=== PATIENT | female | born 1940 | race Caucasian/White ===

== ENCOUNTER 2019-05-05 01:03 | Inpatient (IN) | payer MEDICARE ==
[2019-05-05 03:43] VITALS: BMI 22.1
[2019-05-05] MEDS ORDERED: PANTOPRAZOLE 40 MG/10 ML VIAL IVP SCH (09:45)
[2019-05-05] MEDS: SODIUM CHLORIDE 0.9% 1,000 ML IV SCH (10:38)
[2019-05-05] MEDS ORDERED: ACETAMINOPHEN TAB 325 MG TAB PO PRN (11:10)
[2019-05-05] MEDS ORDERED: DOCUSATE 100 MG CAP PO PRN (11:10)
--- NOTE | 2019-05-05 11:14 | P.HPIM ---
History of Present Illness This is a pleasant 78 years old female with past medical history of hiatus hernia, possible GERD, she had EGD more than 5 years ago, mitral valve prolapse, peripheral vascular disease status post bilateral stent placement. She was transferred from [facility]. Presents with worsening upper abdominal pain of 1 month duration, the pain is in mainly in the epigastrium radiating to the sides, felt like burning about 10/10 in severity as per patient although she is does not look in distress. Associated with some nausea but no vomiting. Bowel movements looks constipated. It looks like over the last 4 weeks patient was placed on Carafate and omeprazole without much help of her abdominal pain. Over the last 2 days patient also was complaining of from odynophagia, with pain with swallowing. she denies chest pain or dyspnea. As per daughter at bedside started about one month ago with common called at that time she got Augmentin and developed abdominal pain with nausea vomiting and she at [facility] she had CAT scan of the abdomen without contrast was showing gastritis with less prominent rugal folds from prior examination. Chest x-ray showing no acute process per assistant to the director's report. EKG show normal sinus rhythm with no significant ST-T changing, rate is 88 with QTC 423. Labs showing negative troponin. Sodium 143, potassium 2.9, creatinine 0.9, liver enzymes elevated, bilirubin 0.8 amylase 67. Urine analysis is still suspicious of infection. W WBC 7.0K, hemoglobin 12.0, platelets 267. patient denies history of smoking, alcohol or illicit drug abuse Review of Systems CONSTITUTIONAL: No fever, no malaise, no fatigue. HEENT: No recent visual problems or hearing problems. Denied any sore throat. CARDIOVASCULAR: No orthopnea, PND, no palpitations, no syncope. PULMONARY: No shortness of breath, no cough, no hemoptysis. GASTROINTESTINAL: No diarrhea, Normoactive bowel sounds. NEUROLOGICAL: No headaches, no weakness, no numbness. HEMATOLOGICAL: Denies any bleeding or petechiae. GENITOURINARY: Denies any burning micturition, frequency, or urgency. MUSCULOSKELETAL/RHEUMATOLOGICAL: Denies any joint pain, swelling, or any muscle pain. ENDOCRINE: Denies any polyuria or polydipsia. 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, hiatal Hernia, cirrohosis History of Any Multi-Drug Resistant Organisms: None Reported Past Surgical History: Appendectomy, Cholecystectomy, Hysterectomy Additional Past Surgical History / Comment(s): 2 scar tissues removals, stent in B/L legs Past Anesthesia/Blood Transfusion Reactions: No Reported Reaction Smoking Status: Former smoker - Past Family History Father Family Medical History: GERD/Reflux Additional Family Medical History / Comment(s): Ulcers, gangrene of the toe Mother Family Medical History: Diabetes Mellitus, Hypertension Medications and Allergies Home Medications Medication Instructions Recorded Confirmed Type Acetaminophen [Tylenol Arthritis] 650 mg PO HS PRN 05/05/19 05/05/19 History Aspirin EC [Ecotrin Low Dose] 81 mg PO DAILY 05/05/19 05/05/19 History Cetirizine HCl [Zyrtec] 10 mg PO DAILY PRN 05/05/19 05/05/19 History Docusate [Colace] 100 mg PO DAILY PRN 05/05/19 05/05/19 History Gabapentin [Neurontin] 300 mg PO TID 05/05/19 05/05/19 History Omeprazole 20 mg PO BID 05/05/19 05/05/19 History Rosuvastatin [Crestor] 10 mg PO HS 05/05/19 05/05/19 History Sucralfate [Carafate] 1 gm PO ACHS 05/05/19 05/05/19 History Allergies Allergy/AdvReac Type Severity Reaction Status Date / Time amoxicillin [From Augmentin] Allergy Nausea & Verified 05/05/19 07:39 Vomiting clavulanic acid Allergy Nausea & Verified 05/05/19 07:39 [From Augmentin] Vomiting duloxetine Allergy Unknown Verified 05/05/19 07:39 metronidazole Allergy Unknown Verified 05/05/19 07:39 pregabalin [From Lyrica] Allergy Unknown Verified 05/05/19 07:39 Sulfa (Sulfonamide Allergy Unknown Verified 05/05/19 07:39 Antibiotics) trimethoprim Allergy Unknown Verified 05/05/19 07:39 codeine AdvReac Nausea & Verified 05/05/19 07:39 Vomiting hydromorphone [From Dilaudid] AdvReac Nausea & Verified 05/05/19 07:39 Vomiting morphine AdvReac Nausea & Verified 05/05/19 07:39 Vomiting Physical Exam Vitals: Vital Signs Temp Pulse Resp BP Pulse Ox 05/05/19 07:30 98.3 F 72 18 103/61 95 05/05/19 04:00 98.0 F 67 16 148/76 97 Intake and Output 05/04/19 05/05/19 05/05/19 22:59 06:59 14:59 Other: # Voids 1 Weight 58.6 kg GENERAL: The patient is alert and oriented x3, not in any acute distress. Well developed, well nourished. HEENT: Pupils are round and equally reacting to light. EOMI. No scleral icterus. No conjunctival pallor. Normocephalic, atraumatic. No pharyngeal erythema. No thyromegaly. CARDIOVASCULAR: S1 and S2 present. No murmurs, rubs, or gallops. PULMONARY: Chest is clear to auscultation, no wheezing or crackles. -ABDOMEN: Soft. Patria-Umbilical and epigastric tenderness with no rebound tenderness or guarding, nondistended, normoactive bowel sounds. No palpable organomegaly. MUSCULOSKELETAL: No joint swelling or deformity. EXTREMITIES: No cyanosis, clubbing, or pedal edema. NEUROLOGICAL: Gross neurological examination did not reveal any focal deficits. SKIN: No rashes. Thrombosis Risk Factor Assmnt - Choose All That Apply Each Factor Represents 1 point: Hx of IBD Each Risk Factor Represents 3 Points: Age 75 years or older Thrombosis Risk Factor Assessment Total Risk Factor Score: 4 Thrombosis Risk Factor Assessment Level: Moderate Risk Assessment and Plan Assessment: Acute abdominal pain with odynophagia. Related to food, suspicious for acute gastritis. CAT scan showing gastritis as well. Constipation History of hiatal hernia History of GERD History of mitral valve prolapse History of peripheral vascular disease status post bilateral stent placement History of coronary artery disease Osteoarthritis Hyperlipidemia Plan: This is a pleasant 78 years old female who presents with epigastric pain and tenderness, suspicious for gastritis. Continue with proton pump inhibitor, continue with Carafate. Call gastroenterology consult. Labs visited the emergency room for the first time, echo on she will visit the emergency room for second time and this is the third time for similar complaint of abdominal pain.and medication were reviewed.. Continue same treatment. Continue with symptomatic treatment. Resume home medication. Monitor lytes and vitals. DVT and GI prophylaxis. Further recommendations of the clinical course of the patient DVT prophylaxis: Subcutaneous heparin GI Prophylaxis: Protonix Prognosis is guarded
[2019-05-05 11:26] LABS: Basophils % (A) 1 %; Eosinophils # (A) 0.3 k/uL (0-0.7); Eosinophils % (A) 5 %; HCT 34.9 % (34.0-46.0); HGB 11.6 gm/dL (11.4-16.0); Lymphocytes # (A) 2.7 k/uL (1.0-4.8); Lymphocytes % (A) 51 %; MCH 30.5 pg (25.0-35.0); MCHC 33.1 g/dL (31.0-37.0); MCV 91.9 fL (80.0-100.0); Mean Platelet Volume 7.5; Monocytes # (A) 0.2 k/uL (0-1.0); Monocytes % (A) 4 %; Neutrophils % (A) 37 %; Platelet Count 260 k/uL (150-450); RDW 13.7 % (11.5-15.5); WBC 5.3 k/uL (3.8-10.6)
[2019-05-05 11:33] LABS: Albumin 4.1 g/dL (3.5-5.0); Calcium 9.2 mg/dL (8.4-10.2); Potassium 3.7 mmol/L (3.5-5.1); Total Protein 6.7 g/dL (6.3-8.2)
[2019-05-05] MEDS: SUCRALFATE 1 GM TAB PO SCH ×2 (11:49→17:38)
--- NOTE | 2019-05-05 14:40 | P.CONS ---
History of Present Illness - Reason for Consult Consult date: 05/05/19 GERD Requesting physician: Inez Redmond - Chief Complaint Epigastric abdominal pain - History of Present Illness 78-year-old female transferred from [facility] with worsening epigastric abdominal pain indigestion 1 month unrelieved with twice daily PPI and Carafate. Patient reports a history of hiatal hernia with remote EGD, GERD, mitral valve prolapse, PVD with bilateral lower extremity stenting. Denies hematemesis hematochezia or melena. She was scheduled for outpatient EGD next week for evaluation of GERD type symptoms. White count 5.3. Hemoglobin 11.6. BUN 8. Creatinine 0.7. LFTs within normal limits. Troponin 0.053. Cardiology consulted. Echocardiogram ordered. Review of Systems RConstitutional: Denies fever, chills, sweats, weight gain, or loss. HEENT: Negative for migraines, blurred vision or loss, earaches, drainage, tinnitus, oral mucosal lesions, dysphagia, or odynophagia. CARDIAC: Negative for chest pain, arrhythmias, or palpitation. RESPIRATORY: Negative for shortness of breath, hemoptysis, cough, or sputum production. GI: See HPI for pertinent findings. : Negative for hematuria, urgency, frequency, polyuria, or dysuria. GYNc: Negative vaginal discharge. MUSCULOSKELETAL: Negative for muscle aches, swelling, arthritis, and arthralgias. NEUROLOGIC: Negative for stroke or TIA. ENDOCRINE: Negative for thyroid problems. SKIN: Negative for rash or itching. 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, hiatal Hernia, cirrohosis History of Any Multi-Drug Resistant Organisms: None Reported Past Surgical History: Appendectomy, Cholecystectomy, Hysterectomy Additional Past Surgical History / Comment(s): 2 scar tissues removals, stent in B/L legs Past Anesthesia/Blood Transfusion Reactions: No Reported Reaction Smoking Status: Former smoker - Past Family History Father Family Medical History: GERD/Reflux Additional Family Medical History / Comment(s): Ulcers, gangrene of the toe Mother Family Medical History: Diabetes Mellitus, Hypertension Medications and Allergies Home Medications Medication Instructions Recorded Confirmed Type Acetaminophen [Tylenol Arthritis] 650 mg PO HS PRN 05/05/19 05/05/19 History Aspirin EC [Ecotrin Low Dose] 81 mg PO DAILY 05/05/19 05/05/19 History Cetirizine HCl [Zyrtec] 10 mg PO DAILY PRN 05/05/19 05/05/19 History Docusate [Colace] 100 mg PO DAILY PRN 05/05/19 05/05/19 History Gabapentin [Neurontin] 300 mg PO TID 05/05/19 05/05/19 History Omeprazole 20 mg PO BID 05/05/19 05/05/19 History Rosuvastatin [Crestor] 10 mg PO HS 05/05/19 05/05/19 History Sucralfate [Carafate] 1 gm PO ACHS 05/05/19 05/05/19 History Allergies Allergy/AdvReac Type Severity Reaction Status Date / Time amoxicillin [From Augmentin] Allergy Nausea & Verified 05/05/19 07:39 Vomiting clavulanic acid Allergy Nausea & Verified 05/05/19 07:39 [From Augmentin] Vomiting duloxetine Allergy Unknown Verified 05/05/19 07:39 metronidazole Allergy Unknown Verified 05/05/19 07:39 pregabalin [From Lyrica] Allergy Unknown Verified 05/05/19 07:39 Sulfa (Sulfonamide Allergy Unknown Verified 05/05/19 07:39 Antibiotics) trimethoprim Allergy Unknown Verified 05/05/19 07:39 codeine AdvReac Nausea & Verified 05/05/19 07:39 Vomiting hydromorphone [From Dilaudid] AdvReac Nausea & Verified 05/05/19 07:39 Vomiting morphine AdvReac Nausea & Verified 05/05/19 07:39 Vomiting Physical Exam Vitals: Vital Signs Temp Pulse Resp BP Pulse Ox 05/05/19 07:30 98.3 F 72 18 103/61 95 05/05/19 04:00 98.0 F 67 16 148/76 97 Intake and Output 05/04/19 05/05/19 05/05/19 22:59 06:59 14:59 Intake Total 440 Balance 440 Intake: Oral 240 Other 200 Other: # Voids 1 Weight 58.6 kg General appearance: The patient is alert, oriented, in no acute distress. HET: Head is normocephalic and atraumatic. Pupils are equal and reactive. Oropharynx is clear without lesions. Neck: Supple without lymphadenopathy. Trachea midline. Heart: S1 S2. Regular rate and rhythm. Lungs: No crackles or wheezes are heard. Abdomen: Soft, mild midepigastric tenderness, nondistended with bowel sounds. No peritoneal signs. No palpable organomegaly or masses. Extremities: Normal skin color and turgor. No cyanosis, rash, ulceration, c lubbing, or edema. Radial and pedal pulses are 2/4 bilaterally. Neurological: No focal deficits. Strength and sensation are grossly intact. Results CBC & Chem 7: 05/05/19 11:08 05/05/19 11:08 Labs: Abnormal Lab Results - Last 24 Hours (Table) 05/05/19 05/05/19 Range/Units 11:08 11:08 Chloride 111 H (98-107) mmol/L Troponin I 0.053 H* (0.000-0.034) ng/mL Assessment and Plan (1) Epigastric abdominal pain Narrative/Plan: 78-year-old female with a history of PVD, CAD GERD hiatal hernia with worsening epigastric abdominal pain indigestion 1 month unrelieved with twice daily PPI and Carafate therapy. Current Visit: Yes Status: Acute Code(s): R10.13 - EPIGASTRIC PAIN SNOMED Code(s): 84717027 (2) History of gastroesophageal reflux (GERD) Current Visit: Yes Status: Acute Code(s): Z87.19 - PERSONAL HISTORY OF OTHER DISEASES OF THE DIGESTIVE SYSTEM SNOMED Code(s): 13743551938404 (3) History of hiatal hernia Current Visit: Yes Status: Acute Code(s): Z87.19 - PERSONAL HISTORY OF OTHER DISEASES OF THE DIGESTIVE SYSTEM SNOMED Code(s): 428695832 (4) Elevated troponin Current Visit: Yes Status: Acute Code(s): R74.8 - ABNORMAL LEVELS OF OTHER SERUM ENZYMES SNOMED Code(s): 494680894 Plan: 1. Case was discussed with cardiology echocardiogram has been ordered. At this time they see no contraindication proceeding with EGD evaluation tomorrow. We'll pursue with EGD evaluation tomorrow. Protonix 40 mg IV twice daily. Continue Carafate 1 g before meals, light diet. Nothing by mouth after midnight. The dental appliance mechanic has discussed the risks, benefits and alternative therapies for the above-mentioned procedure and for both sedation/analgesia as well as necessary blood product administration, if indicated, as they pertain to this patient. The patient has indicated understanding and acceptance of the risks and procedures discussed. Thank you for this kind referral and the opportunity to participate in the care of your patient. This consultation was discussed with Dr. Acuna. The impression and plan of care have been directed as dictated.
[2019-05-05] MEDS: GABAPENTIN 300 MG CAP PO SCH (15:40)
[2019-05-05] MEDS: HEPARIN SODIUM,PORCINE 5,000 UNIT/ML 1 ML VIAL SQ SCH (15:43)
[2019-05-05] MEDS ORDERED: ATORVASTATIN 20 MG TAB PO SCH (21:00)
[2019-05-05] MEDS ORDERED: NON-FORMULARY DRUG (Omeprazole [Omeprazole] 20 MG) PO SCH (21:00)
[2019-05-05] MEDS ORDERED: ALPRAZolam 0.25 MG TAB PO PRN (22:33)
[2019-05-05] MEDS: PANTOPRAZOLE 40 MG/10 ML VIAL IVP SCH (22:42)
[2019-05-06] MEDS: SUCRALFATE 1 GM TAB PO SCH ×5 (03:59→20:50)
[2019-05-06] MEDS: GABAPENTIN 300 MG CAP PO SCH ×4 (03:59→20:50)
[2019-05-06] MEDS: HEPARIN SODIUM,PORCINE 5,000 UNIT/ML 1 ML VIAL SQ SCH ×4 (04:00→23:17)
[2019-05-06 06:18] LABS: African American GFR (CKD) >90 (>60 ml/min/1.73 sqM); Anion Gap 5 mmol/L; Blood Urea Nitrogen 8 mg/dL (7-17); Calcium 8.6 mg/dL (8.4-10.2); Carbon Dioxide 27 mmol/L (22-30); Chloride 110 mmol/L (98-107); Glucose 77 mg/dL (74-99); Potassium 3.2 mmol/L (3.5-5.1); Sodium 142 mmol/L (137-145)
[2019-05-06] MEDS: SODIUM CHLORIDE 0.9% 1,000 ML IV SCH ×4 (06:41→22:17)
--- NOTE | 2019-05-06 07:10 | P.PN ---
Subjective This is a pleasant 78 years old female with past medical history of hiatus hernia, possible GERD, she had EGD more than 5 years ago, mitral valve prolapse, peripheral vascular disease status post bilateral stent placement. She was transferred from [facility]. Presents with worsening upper abdominal pain of 1 month duration, the pain is in mainly in the epigastrium radiating to the sides, felt like burning about 10/10 in severity as per patient although she is does not look in distress. Associated with some nausea but no vomiting. Bowel movements looks constipated. It looks like over the last 4 weeks patient was placed on Carafate and omeprazole without much help of her abdominal pain. Over the last 2 days patient also was complaining of from odynophagia, with pain with swallowing. she denies chest pain or dyspnea. As per daughter at bedside started about one month ago with common called at that time she got Augmentin and developed abdominal pain with nausea vomiting and she at [facility] she had CAT scan of the abdomen without contrast was showing gastritis with less prominent rugal folds from prior examination. Chest x-ray showing no acute process per flight attendant inflight services's report. EKG show normal sinus rhythm with no significant ST-T changing, rate is 88 with QTC 423. Labs showing negative troponin. Sodium 143, potassium 2.9, creatinine 0.9, liver enzymes elevated, bilirubin 0.8 amylase 67. Urine analysis is still suspicious of infection. W WBC 7.0K, hemoglobin 12.0, platelets 267. patient denies history of smoking, alcohol or illicit drug abuse 05/06/2019 Patient is transferred to select unit, she is lying in bed not in distress. No nausea or vomiting. She is nothing by mouth this morning for possible procedure. She still complaining from epigastric pain and tenderness similar to her presentation. Vitas looks stable. Labs from today showing potassium of 3.2. Which is been replaced. Repeat troponin is coming back to normal at 0.029. Gastroenterology evaluated the patient and the planned for patient is going for EGD this morning. Patient had elevated troponin, echocardiogram is pending. Cardiology team were consulted. Discussed with the patient this morning and she is willing to go for EGD. Review of systems CONSTITUTIONAL: No fever, no malaise, no fatigue. HEENT: No recent visual problems or hearing problems. Denied any sore throat. CARDIOVASCULAR: No orthopnea, PND, no palpitations, no syncope. PULMONARY: No shortness of breath, no cough, no hemoptysis. GASTROINTESTINAL: No diarrhea, no nausea, no vomiting, Normoactive bowel sounds. NEUROLOGICAL: No headaches, no weakness, no numbness. HEMATOLOGICAL: Denies any bleeding or petechiae. GENITOURINARY: Denies any burning micturition, frequency, or urgency. MUSCULOSKELETAL/RHEUMATOLOGICAL: Denies any joint pain, swelling, or any muscle pain. ENDOCRINE: Denies any polyuria or polydipsia. Medication: Tylenol 650 mg, Xanax 0.2125 mg, aspirin 81 mg, Lipitor 20 mg, Colace 100 mg, Neurontin 300 mg, heparin 5000 units, Protonix 40 mg, potassium chloride 20 mEq once, sodium chloride at 75 mL per hour, Carafate 1 mg Objective - Vital Signs Vital signs: Vital Signs Temp 98.1 F 05/06/19 04:00 Pulse 72 05/06/19 04:00 Resp 18 05/06/19 04:00 BP 100/53 05/06/19 04:00 Pulse Ox 95 05/06/19 04:00 Intake & Output 05/05/19 05/06/19 05/06/19 18:59 06:59 18:59 Intake Total 680 Balance 680 Weight 58.6 kg 57.5 kg Intake: Oral 480 Other 200 Other: # Voids 1 - Exam GENERAL: The patient is alert and oriented x3, not in any acute distress. Well developed, well nourished. HEENT: Pupils are round and equally reacting to light. EOMI. No scleral icterus. No conjunctival pallor. Normocephalic, atraumatic. No pharyngeal erythema. No thyromegaly. CARDIOVASCULAR: S1 and S2 present. No murmurs, rubs, or gallops. PULMONARY: Chest is clear to auscultation, no wheezing or crackles. -ABDOMEN: Soft. Patria-Umbilical and epigastric tenderness with no rebound tenderness or guarding, nondistended, normoactive bowel sounds. No palpable organomegaly. MUSCULOSKELETAL: No joint swelling or deformity. EXTREMITIES: No cyanosis, clubbing, or pedal edema. NEUROLOGICAL: Gross neurological examination did not reveal any focal deficits. SKIN: No rashes. - Labs CBC & Chem 7: 05/05/19 11:08 05/06/19 05:28 Labs: Abnormal Lab Results - Last 24 Hours (Table) 05/05/19 05/05/19 05/05/19 Range/Units 11:08 11:08 17:00 Potassium (3.5-5.1) mmol/L Chloride 111 H (98-107) mmol/L Troponin I 0.053 H* 0.035 H* (0.000-0.034) ng/mL 05/06/19 Range/Units 05:28 Potassium 3.2 L (3.5-5.1) mmol/L Chloride 110 H (98-107) mmol/L Troponin I (0.000-0.034) ng/mL Assessment and Plan Assessment: Acute abdominal pain with odynophagia. Related to food, suspicious for acute gastritis. CAT scan showing gastritis as well. Elevated troponin, flight attendant inflight services team been consulted Constipation History of hiatal hernia History of GERD History of mitral valve prolapse History of peripheral vascular disease status post bilateral stent placement History of coronary artery disease Osteoarthritis Hyperlipidemia Plan: This is a pleasant 78 years old female who presents with epigastric pain and tenderness, suspicious for gastritis. Continue with proton pump inhibitor, con tinue with Carafate. gastroenterology consult is appreciated, patient is going for EGD. Cardiology consult for elevated troponin. Continue same treatment. Continue with symptomatic treatment. Resume home medication. Monitor lytes and vitals. DVT and GI prophylaxis. Further recommendations of the clinical course of the patient DVT prophylaxis: Subcutaneous heparin GI Prophylaxis: Protonix Prognosis is guarded
--- NOTE | 2019-05-06 07:21 | P.CRDCN ---
History of Present Illness History of present illness: This is a pleasant 78-year-old female past medical history significant for peripheral vascular disease status post bilateral iliac stenting as well as carotid artery disease per the patient, dyslipidemia, hiatal hernia, gastroesophageal reflux disease and former nicotine dependence. She quit smoking 7 years ago. She follows with Dr. Lozada for cardiology out of [place]. We've been asked to see her in consultation secondary to elevated troponin. She presented to the hospital as a transfer from [facility] for symptoms of epigastric burning and tenderness. She states starting around the end of March she has gone to the emergency department 3 separate times and [facility] for an aching discomfort in the. Umbilical region. She is scheduled to have an outpatient EGD on however yesterday the discomfort in her lower abdomen radiating up into the epigastric region and wrapped around her chest. She states it felt like her bra was too tight and she had to remove her brought to alleviate the discomfort. The discomfort in the epigastric region is described as a tight burning sensation. She has been taking [id number] omeprazole with no relief. She states for the previous month she has felt as though she cannot swallow her food and that it is getting stuck in the epigastric region. She states she has been chewing her food up a small possible prior to swallowing however due to the significant discomfort she has not eaten and states she has lost 20 pounds in the last month. Initial EKG at [facility] last night at 2330 revealed sinus mechanism with minimal ST depression noted in inferior/lateral leads. Repeat here x2 ST depression has resolved. Chest xray at [facility] negative for an acute cardiopulmonary process. Laboratory data reviewed, initial troponin at [facility] last night at 2330 was less then 0.017, repeat today at 1115 0.053. Current cardiac medications include rosuvastatin 10 mg daily and aspirin 81 mg daily. At the time of my exam: CONSTITUTIONAL: Denies fever. Denies chills. EYES: Denies blurred vision. Denies vision changes. Denies eye pain. EARS, NOSE, MOUTH & THROAT: Denies headache. Denies sore throat. Denies ear pain. CARDIOVASCULAR: Denies chest pain. Denies shortness of breath. Denies orthopnea. Denies PND. Denies palpitations. RESPIRATORY: Denies cough. GASTROINTESTINAL: Denies abdominal pain. Denies diarrhea. Denies constipation. Denies nausea. Denies vomiting. MUSCULOSKELETAL: Denies myalgias. INTEGUMENTARY: Denies pruitis. Denies rash. NEUROLOGIC: Denies numbness. Denies tingling. Denies weakness. PSYCHIATRIC: Denies anxiety. Denies depression. ENDOCRINE: Denies fatigue. Denies weight change. Denies polydipsia. Denies polyurina. GENITOURINARY: Denies burning, hematuria or urgency with micturation. HEMATOLOGIC: Denies history of anemia. Denies bleeding. Blood pressure 103/61 heart rate 72 afebrile and maintaining oxygen saturation on room air GENERAL: This is a 78-year-old female in no apparent distress at the time of my examination. HEENT: Head is atraumatic, normocephalic. Pupils are equal, round. Sclerae anicteric. Conjunctivae are clear. Mucous membranes of the mouth are moist. Neck is supple. There is no jugular venous distention. Bilateral carotid bruit heard. LUNGS: Clear to auscultation no wheezes, rales or rhonchi. No chest wall tenderness is noted on palpation or with deep breathing. HEART: Regular rate and rhythm with systolic ejection murmur at the base, no rubs or gallops. S1 and S2 heard. ABDOMEN: Soft, mildly tender in the epigastric region on palpation. Bowel sounds are heard. No organomegaly noted. EXTREMITIES: No evidence of peripheral edema and no calf tenderness noted. VASCULAR: Radial and dorsalis pedis pulses palpated, no evidence of clubbing. NEUROLOGIC: Patient is awake, alert and oriented x3. ASSESSMENT Abdominal and epigastric pain, reproducible with evidence of gastritis. Scheduled for EGD tomorrow Mild troponin leak, unclear etiology. Peripheral vascular disease s/p bilateral iliac stents Hiatal hernia GERD Dyslipidemia PLAN Obtain third troponin to assess for a trend. Obtain 2-D echocardiogram and Doppler study to assess cardiac structure and function. Further recommendations to follow based upon clinical course. Thank you kindly for this consultation. Nurse Practitioner note has been reviewed, I agree with a documented findings and plan of care. Patient was seen and examined. 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, hiatal Hernia, cirrohosis History of Any Multi-Drug Resistant Organisms: None Reported Past Surgical History: Appendectomy, Cholecystectomy, Hysterectomy Additional Past Surgical History / Comment(s): 2 scar tissues removals, stent in B/L legs Past Anesthesia/Blood Transfusion Reactions: No Reported Reaction Smoking Status: Former smoker - Past Family History Father Family Medical History: GERD/Reflux Additional Family Medical History / Comment(s): Ulcers, gangrene of the toe Mother Family Medical History: Diabetes Mellitus, Hypertension Medications and Allergies Home Medications Medication Instructions Recorded Confirmed Type Acetaminophen [Tylenol Arthritis] 650 mg PO HS PRN 05/05/19 05/05/19 History Aspirin EC [Ecotrin Low Dose] 81 mg PO DAILY 05/05/19 05/05/19 History Cetirizine HCl [Zyrtec] 10 mg PO DAILY PRN 05/05/19 05/05/19 History Docusate [Colace] 100 mg PO DAILY PRN 05/05/19 05/05/19 History Gabapentin [Neurontin] 300 mg PO TID 05/05/19 05/05/19 History Omeprazole 20 mg PO BID 05/05/19 05/05/19 History Rosuvastatin [Crestor] 10 mg PO HS 05/05/19 05/05/19 History Sucralfate [Carafate] 1 gm PO ACHS 05/05/19 05/05/19 History Allergies Allergy/AdvReac Type Severity Reaction Status Date / Time amoxicillin [From Augmentin] Allergy Nausea & Verified 05/05/19 07:39 Vomiting clavulanic acid Allergy Nausea & Verified 05/05/19 07:39 [From Augmentin] Vomiting duloxetine Allergy Unknown Verified 05/05/19 07:39 metronidazole Allergy Unknown Verified 05/05/19 07:39 pregabalin [From Lyrica] Allergy Unknown Verified 05/05/19 07:39 Sulfa (Sulfonamide Allergy Unknown Verified 05/05/19 07:39 Antibiotics) trimethoprim Allergy Unknown Verified 05/05/19 07:39 codeine AdvReac Nausea & Verified 05/05/19 07:39 Vomiting hydromorphone [From Dilaudid] AdvReac Nausea & Verified 05/05/19 07:39 Vomiting morphine AdvReac Nausea & Verified 05/05/19 07:39 Vomiting Physical Exam Vitals: Vital Signs Temp Pulse Resp BP Pulse Ox 05/05/19 07:30 98.3 F 72 18 103/61 95 05/05/19 04:00 98.0 F 67 16 148/76 97 Intake and Output 05/04/19 05/05/19 05/05/19 22:59 06:59 14:59 Other: # Voids 1 Weight 58.6 kg Results 05/05/19 11:08 05/06/19 05:28 Cardiac Enzymes 05/05/19 05/05/19 Range/Units 11:08 11:08 AST 23 (14-36) U/L Troponin I 0.053 H* (0.000-0.034) ng/mL CBC 05/05/19 Range/Units 11:08 WBC 5.3 (3.8-10.6) k/uL RBC 3.80 (3.80-5.40) m/uL Hgb 11.6 (11.4-16.0) gm/dL Hct 34.9 (34.0-46.0) % Plt Count 260 (150-450) k/uL Comprehensive Metabolic Panel 05/05/19 Range/Units 11:08 Sodium 144 (137-145) mmol/L Potassium 3.7 (3.5-5.1) mmol/L Chloride 111 H (98-107) mmol/L Carbon Dioxide 27 (22-30) mmol/L BUN 8 (7-17) mg/dL Creatinine 0.78 (0.52-1.04) mg/dL Glucose 83 (74-99) mg/dL Calcium 9.2 (8.4-10.2) mg/dL AST 23 (14-36) U/L ALT 19 (9-52) U/L Alkaline Phosphatase 85 (38-126) U/L Total Protein 6.7 (6.3-8.2) g/dL Albumin 4.1 (3.5-5.0) g/dL Current Medications Generic Name Dose Route Start Last Admin Trade Name Freq PRN Reason Stop Dose Admin Acetaminophen 650 mg 05/05/19 11:10 Tylenol Tab PO HS PRN MILD Pain Aspirin 81 mg 05/06/19 09:00 Aspirin PO DAILY [facility] Atorvastatin Calcium 20 mg 05/05/19 21:00 Lipitor PO HS [facility] Docusate Sodium 100 mg 05/05/19 11:10 Colace PO DAILY PRN Constipation Gabapentin 300 mg 05/05/19 16:00 Neurontin PO TID RENO Heparin Sodium (Porcine) 5,000 unit 05/05/19 16:00 Heparin SQ Q8HR RENO Sodium Chloride 1,000 mls @ 100 mls/hr 05/05/19 09:45 05/05/19 10:38 Saline 0.9% IV 100 mls/hr .Q10H RENO Administration Pantoprazole Sodium 40 mg 05/05/19 21:00 Protonix IVP BID RENO Sucralfate 1 gm 05/05/19 12:30 05/05/19 11:49 Carafate PO Not Given ACHS RENO Intake and Output 05/04/19 05/05/19 05/05/19 22:59 06:59 14:59 Other: # Voids 1 Weight 58.6 kg 05/05/19 11:08 05/05/19 11:08
[2019-05-06] MEDS: PANTOPRAZOLE 40 MG/10 ML VIAL IVP SCH ×2 (07:50→20:55)
[2019-05-06] MEDS ORDERED: POTASSIUM CHLORIDE 20 MEQ in WATER FOR INJECTION 1 100ML.BAG IVPB ONE (08:00)
[2019-05-06] MEDS ORDERED: ASPIRIN 81 MG PO SCH (09:00)
[2019-05-06] MEDS ORDERED: ALPRAZolam 0.25 MG TAB PO PRN (09:15)
[2019-05-06] MEDS ORDERED: ASPIRIN 325 MG TAB PO STA (09:15)
[2019-05-06] MEDS ORDERED: SODIUM CHLORIDE 0.9% 1,000 ML in EMPTY BAG 1 BAG IV ONE (09:15)
[2019-05-06] MEDS ORDERED: ATORVASTATIN 80 MG TAB PO STA (09:15)
[2019-05-06] MEDS ORDERED: NITROGLYCERIN SL TABS 0.4 MG TAB SUBLINGUAL PRN (09:15)
[2019-05-06] MEDS ORDERED: ALPRAZolam 0.5 MG TAB PO PRN (09:15)
[2019-05-06 09:32] LABS: Cholesterol 216 mg/dL (<200); HDL Cholesterol 39 mg/dL (40-60); LDL Cholesterol,Calculated 147 mg/dL (0-99); Triglycerides 150 mg/dL (<150)
[2019-05-06 10:04] LABS: Glucose,Whole Blood 79 mg/dL (75-99)
[2019-05-06] MEDS ORDERED: IV FLUID CONTINUATION 1,000 ML IV ONE (12:52)
[2019-05-06] MEDS ORDERED: fentaNYL (PF) 50 MCG/ML 2 ML AMP ONE (12:58)
[2019-05-06] MEDS ORDERED: HEPARIN SODIUM 1,000 UN/ML (10ML VL) ONE (12:58)
[2019-05-06] MEDS ORDERED: fentaNYL (PF) 50 MCG/ML 2 ML AMP IVP ONE (13:12)
[2019-05-06] MEDS ORDERED: LIDOCAINE 1% INJ 10MG/ML (20 ML MDV) SQ ONE ×2 (13:16→13:26)
[2019-05-06] MEDS ORDERED: MIDAZOLAM (PF) 2 MG/2 ML VIAL IVP ONE (13:16)
[2019-05-06] MEDS ORDERED: LIDOCAINE 1% INJ 10MG/ML (20 ML MDV) ONE (13:28)
[2019-05-06] MEDS ORDERED: RX INFO: IV CONTRAST WAS GIVEN 1 EACH MISC MISCELLANE PRN (13:46)
[2019-05-06] MEDS ORDERED: SODIUM CHLORIDE 0.9% 1,000 ML IV SCH (14:00)
--- NOTE | 2019-05-06 18:08 | ECHOF ---
Referral Reason:Rule out heart disease MEASUREMENTS -------- HEIGHT: 162.6 cm WEIGHT: 58.5 kg BP: RVIDd: 2.4 cm (< 3.3) IVSd: 1.1 cm (0.6 - 1.1) LVIDd: 3.1 cm (3.9 - 5.3) LVPWd: 1.3 cm (0.6 - 1.1) IVSs: 1.5 cm LVIDs: 1.3 cm LVPWs: 1.7 cm Ao Diam: 3.2 cm (2.0 - 3.7) AV Cusp: 1.8 cm (1.5 - 2.6) LA Diam: 3.0 cm (2.7 - 3.8) MV EXCURSION: 13.970 mm (> 18.000) MV EF SLOPE: 56 mm/s (70 - 150) EPSS: 0.3 cm MV E Jorge: 1.21 m/s MV DecT: 309 ms MV A Jorge: 1.43 m/s MV E/A Ratio: 0.85 RAP: 5.00 mmHg RVSP: 39.79 mmHg FINDINGS -------- Sinus rhythm. This was a technically good study. The left ventricular size is normal. There is mild concentric left ventricular hypertrophy. Overa ll left ventricular systolic function is normal with, an EF between 55 - 60 %. The right ventricle is normal in size. The left atrial size is normal. The right atrial size is normal. Interatrial and interventricular septum intact. There is mild aortic valve sclerosis. Mild mitral annular calcification present. Mild mitral regurgitation is present. [id number] tricuspid regurgitation present. There is mild pulmonary hypertension. The right ventricular systolic pressure, as measured by Doppler, is 39.79mmHg. Trace/mild (physiologic) pulmonic regurgitation. The aortic root size is normal. Normal inferior vena cava with normal inspiratory collapse consistent with estimated right atrial pre ssure of 5 mmHg. There is no pericardial effusion. CONCLUSIONS -------- 1. Sinus rhythm. 2. This was a technically good study. 3. The left ventricular size is normal. 4. There is mild concentric left ventricular hypertrophy. 5. Overall left ventricular systolic function is normal with, an EF between 55 - 60 %. 6. The left atrial size is normal. 7. There is mild aortic valve sclerosis. 8. Mild mitral annular calcification present. 9. Mild mitral regurgitation is present. 10. Unzy-ae-drlemhry tricuspid regurgitation present. 11. There is mild pulmonary hypertension. 12. Trace/mild (physiologic) pulmonic regurgitation. 13. The aortic root size is normal. 14. There is no pericardial effusion. SOFTWARE VALIDATION ENGINEER: Nicki Boyce RDCS
--- NOTE | 2019-05-06 20:38 | CC ---
CARDIAC CATHETERIZATION REPORT Mrs. Lutz is a 78-year-old female with known history of peripheral vascular disease who was transferred to [facility] with symptoms of abdominal and chest discomfort with mild elevation of her troponin with no significant chest pain. In view of her multiple risk factors and her presentation, recommendation was made regarding cardiac catheterization. The procedure, its risks and complications were discussed with the patient, who was in full understanding and agreement. 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 Using Xylocaine anesthesia and Seldinger technique, attempts to cannulate the right radial artery were unsuccessful because of vasospasm at that time. Using Xylocaine anesthesia and Seldinger technique, a 6-Indian sheath was introduced in the right femoral artery. Selective right and left coronary angiography was performed using 6- Indian, 4 bend, right and left Claudy catheters. Multiple views were taken of the coronary arteries, including hemiaxial views. Following that, the 6-Indian tight pigtail catheter was introduced in the left ventricle and a 30-degree TREVINO view of the left ventricle was obtained. Following that, catheter and sheath were removed. Hemostasis was obtained with deployment of an Angio-Seal. There was no immediate complication. Patient was returned to her room in stable condition. FINDINGS: FLUOROSCOPY: There was severe calcification involving the left anterior descending artery as well as the left main. LEFT MAIN: This is a large-sized vessel bifurcating into left circumflex, left anterior descending artery. Left main coronary artery has no evidence of high-grade stenosis. LEFT ANTERIOR DESCENDING ARTERY: This is a large-sized vessel, heavily calcified, giving rise to a large proximal diagonal branch. The left anterior descending artery proximally has a 10% to 20% plaque at the bifurcation of the diagonal branch, and there is another plaque involving the diagonal branch. The rest of the vessel has no high- grade stenosis. LEFT CIRCUMFLEX: This is a nondominant vessel giving rise to one large obtuse marginal branch. The left circumflex as well as its branches have no evidence of obstructive coronary artery disease. RIGHT CORONARY ARTERY: This is a large dominant vessel bifurcating into PDA, posterolateral segment and branches, calcified proximally. The right coronary artery proximally has a 10% plaque. The rest of the vessel has no high-grade stenosis. LEFT VENTRICULOGRAM: Left ventriculogram was performed in 30-degree TREVINO view and revealed normal left ventricular size and systolic function. Ejection fraction was about 70%. Arrhythmia was noted. A stent was noted in the distal abdominal aorta with good flow. HEMODYNAMICS: There was no gradient across the aortic valve. The left ventricular end-diastolic pressure was 8-12 mmHg. CONCLUSION: 1. Calcified coronary arteries. 2. Mild coronary artery disease involving the LAD, diagonal branch and right coronary artery. 3. Normal left ventricular size and systolic function. 4. Evidence of stent in the abdominal aorta. RECOMMENDATIONS: In view of findings and anatomy, I have recommended continuing with medical therapy with aggressive coronary risk modifications that have been initiated. Those findings and recommendations were discussed with the patient and her family, and they are in full understanding and agreement. Duration of procedure was 16 minutes. JULIUS / XOCHILT: [id number] /
[2019-05-06] MEDS: METOPROLOL TARTRATE 25 MG TAB PO SCH (20:55)
--- NOTE | 2019-05-07 01:00 | P.PN ---
Subjective Progress Note Date: 05/06/19 Principal diagnosis: Epigastric abdominal pain, GERD Patient seen lying in bed after cardiac catheterization. Denying any nausea or vomiting. She is asking for her diet to be advanced from a clear liquid diet. Objective - Vital Signs Vital signs: Vital Signs Temp 97 F L 05/06/19 20:55 Pulse 71 05/06/19 20:55 Resp 18 05/06/19 20:55 BP 121/70 05/06/19 20:55 Pulse Ox 100 05/06/19 13:46 Intake & Output 05/06/19 05/06/19 05/07/19 06:59 18:59 06:59 Intake Total 200 100 Output Total 300 Balance -100 100 Weight 57.5 kg Intake: IV 200 Invasive Line 2 50 Intake, IV Titration 100 Amount Sodium Chloride 0.9% 1, 100 000 ml @ 100 mls/hr IV . Q10H RENO Rx#:[id number] Oral 0 Output: Urine 300 Other: # Voids 1 1 - Exam On physical examination, patient appears comfortable in no apparent distress. HEAD: Normocephalic, atraumatic. EYES: No scleral icterus. No conjunctival injection. MOUTH: No lesions, tongue midline. NECK: Trachea midline, no gross abnormalities. CHEST: No respiratory distress. ABDOMEN: Soft. Bowel sounds are positive. No organomegaly. No guarding or rigidity. EXTREMITIES: No pedal edema. SKIN: No rashes, no jaundice. NEUROLOGIC: Alert and oriented x3. No focal deficits. - Labs CBC & Chem 7: 05/05/19 11:08 05/06/19 05:28 Labs: Abnormal Lab Results - Last 24 Hours (Table) 05/06/19 05/06/19 Range/Units 05:28 05:28 Potassium 3.2 L (3.5-5.1) mmol/L Chloride 110 H (98-107) mmol/L Triglycerides 150 H (<150) mg/dL Cholesterol 216 H (<200) mg/dL LDL Cholesterol, Calc 147 H (0-99) mg/dL HDL Cholesterol 39 L (40-60) mg/dL Assessment and Plan (1) Epigastric abdominal pain Narrative/Plan: 78-year-old female with multiple medical comorbidities who was transferred to [facility] after presenting for evaluation of abdominal pain. She reports epigastric abdominal pain of 1 month's duration not improved on PPI therapy and Carafate. Unknown etiology may represent peptic ulcer disease, uncontrolled reflux, functional bowel disorder or other etiology. Current Visit: Yes Status: Acute Code(s): R10.13 - EPIGASTRIC PAIN SNOMED Code(s): 08357658 (2) History of gastroesophageal reflux (GERD) Current Visit: Yes Status: Acute Code(s): Z87.19 - PERSONAL HISTORY OF OTHER DISEASES OF THE DIGESTIVE SYSTEM SNOMED Code(s): 26642298578178 Plan: Supportive care Okay for diet Nothing by mouth after midnight Continue Protonix and Carafate therapy Continue to monitor symptoms Plan for EGD in the morning for further evaluation Thank you for allowing us to participate in the care of the patient we will continue to follow
[2019-05-07] MEDS: SUCRALFATE 1 GM TAB PO SCH ×2 (05:26→12:02)
[2019-05-07 06:22] LABS: Calcium 8.8 mg/dL (8.4-10.2); Potassium 3.3 mmol/L (3.5-5.1)
[2019-05-07] MEDS: GABAPENTIN 300 MG CAP PO SCH (07:41)
[2019-05-07] MEDS ORDERED: PROPOFOL 10 MG/ML 20 ML VIAL IV ONE (08:04)
[2019-05-07] MEDS ORDERED: LIDOCAINE 1% INJ 10MG/ML (20 ML MDV) ONE (08:04)
[2019-05-07] MEDS ORDERED: IV FLUID CONTINUATION 300 ML IV ONE (08:08)
[2019-05-07 08:09] VITALS: RESP 16
[2019-05-07] MEDS ORDERED: PANTOPRAZOLE 40 MG TABLET PO SCH (08:30)
--- NOTE | 2019-05-07 08:48 | P.PCN ---
Date of Procedure: 05/07/19 Description of Procedure: BRIEF HISTORY: 78-year-old female transferred from [facility] with worsening epigastric abdominal pain indigestion 1 month unrelieved with twice daily PPI and Carafate. Patient reports a history of hiatal hernia with remote EGD, GERD, mitral valve prolapse, PVD with bilateral lower extremity stenting. Denies hematemesis hematochezia or melena. She was scheduled for outpatient EGD next week for evaluation of GERD type symptoms. White count 5.3. Hemoglobin 11.6. BUN 8. Creatinine 0.7. LFTs within normal limits. Troponin 0.053. Cardiology consulted. Echocardiogram ordered. PROCEDURE PERFORMED: Esophagogastroduodenoscopy with biopsy. PREOPERATIVE DIAGNOSIS: Epigastric abdominal pain, GERD. ESTIMATED BLOOD LOSS: Minimal. IV sedation per anesthesia. PROCEDURE: After informed consent was obtained, the patient was brought into the endoscopy unit. IV sedation was administered by Anesthesia under continuous monitoring. Initially the Olympus GIF-190 video endoscope was inserted into the mouth. Esophagus intubated without any difficulty. It was gradually advanced into the stomach and duodenum and carefully examined. The bulb and the second part of the duodenum appeared normal, with biopsies taken. The scope at this time was withdrawn to the stomach, adequately insufflated with air, and upon careful examination, mucosa of the antrum, body, cardia and the fundus appeared grossly normal, there was however diffuse moderate erythema in the antrum and body suggestive of moderate gastritis with biopsies taken. The scope was then withdrawn into the esophagus. Small hiatal hernia noted. The GE junction was located at 37 cm from the incisors. The esophagus appeared normal. There were no erosions or ulcerations seen and the patient tolerated the procedure well. IMPRESSION: 1. Moderate gastritis antrum and body, biopsies. 2. Small hiatal hernia. 3. Duodenal biopsies. RECOMMENDATIONS: The findings of this examination were discussed with the patient. Okay to resume diet. Continue Protonix twice a day and Carafate. We'll add trial of Bentyl 3 times a day. Await pathology from biopsies. Follow up with Dr. Kramer after discharge as previously scheduled.
[2019-05-07] MEDS ORDERED: ASPIRIN 81 MG PO SCH (09:00)
[2019-05-07] MEDS ORDERED: DICYCLOMINE 10 MG CAP PO SCH (09:00)
--- NOTE | 2019-05-07 09:12 | PN ---
PROGRESS NOTE Mrs. Lutz is a 78-year-old female who presented with symptoms of abdominal discomfort radiating to the chest with minimal troponin elevation. She has history of peripheral vascular disease. In view of her history, she underwent cardiac catheterization yesterday that revealed calcified coronary arteries with mild coronary artery disease. She is doing well today. She is denying any chest pain. Her breathing has been stable. She denies any dizziness or palpitation. She is scheduled to undergo upper endoscopy today. She continues to be on aspirin once a day, Lipitor 40 mg daily, metoprolol tartrate 25 mg twice a day. PHYSICAL EXAMINATION: Blood pressure 105/50 with a heart rate in 60s. LUNGS: Clear. Heart regular rate and rhythm. S1, S2. No S3. No rub. ABDOMEN: Soft nontender. EXTREMITIES: No edema. Right groin no hematoma. LAB DATA: Lab data revealed a potassium 3.3, BUN and creatinine 12 and 0.76. IMPRESSION: 1. Mild coronary artery disease with calcified coronary arteries with minimal troponin elevation could reflect a small non ST-segment elevation myocardial infarction. 2. Abdominal pain scheduled to undergo further workup. 3. History of peripheral vessel disease. 4. Hyperlipidemia. RECOMMENDATION: From the cardiac standpoint, we will continue present therapy. She will be followed as an outpatient. She is stable from the cardiac standpoint. We will see her on an as- needed basis. Please feel free to call us for any questions. MMODL / IJN: [id number] /
[2019-05-07] MEDS: HEPARIN SODIUM,PORCINE 5,000 UNIT/ML 1 ML VIAL SQ SCH (09:16)
[2019-05-07] MEDS: METOPROLOL TARTRATE 25 MG TAB PO SCH (09:17)
[2019-05-07 11:11] VITALS: BP 96/45; PULSE 60; TEMP 98.2
[2019-05-07] MEDS ORDERED: POTASSIUM CHLORIDE ER 20 MEQ TAB.ER PO STA (11:34)
--- NOTE | 2019-05-07 12:12 | DS ---
DISCHARGE SUMMARY FINAL DIAGNOSES: 1. Abdominal pain with elevated troponins with acute non ST-segment elevation status post cardiac catheterization showing mild coronary artery disease. 2. Status post EGD showing gastritis. 3. Hiatal hernia. 4. Gastroesophageal reflux disease. 5. Mitral valve prolapse. 6. History of peripheral vascular disease with bilateral stent placement. 7. History of coronary artery disease. 8. Degenerative joint disease. 9. Hyperlipidemia. DISCHARGE DISPOSITION: The patient will be discharged in stable condition with guarded prognosis. HISTORY OF PRESENT ILLNESS: This 78-year-old woman with a past medical history of multiple medical problems being followed by Dr. Adriano Isaac in the outpatient setting admitted with epigastric pain. Troponin was found to be elevated. The patient underwent a cardiac catheterization and the cardiac cath showed mild coronary artery disease and the patient was treated medically. The patient also had EGD which showed gastritis. Dr. Sanchez saw the patient and the patient also had hypokalemia which was corrected. Overall patient improved significantly. Patient will be discharged in stable condition with guarded prognosis. On exam, vitals are stable. Cardiovascular S1, S2. Abdomen soft. Nervous system: No focal deficits. DISCHARGE ADVICE AND MEDICATIONS: 1. Discharge diet is soft cardiac diet. 2. Activity limited until follow up. 3. Follow up with Dr. Isaac in 2-3 days. 4. CBC, BMP. 5. Follow up with Cardiology and gastroenterology recommended. DISCHARGE MEDICATIONS: 1. Carafate 1 g p.o. q. a.c. 2. Colace 100 mg daily p.r.n. 3. Crestor 10 mg p.o. q.h.s. 4. Ecotrin 81 mg p.o. daily. 5. Neurontin 300 mg p.o. t.i.d. 6. Omeprazole 20 mg p.o. b.i.d. 7. Tylenol Arthritis 650 q.h.s. p.r.n. 8. Zyrtec 10 mg daily p.r.n. 9. Bentyl 10 mg p.o. t.i.d. p.r.n. 10.Lopressor 25 mg p.o. b.i.d. 11.Nitro 0.4 sublingual p.r.n. Once again the patient is being discharged in stable condition with guarded prognosis. MMODL / IJN: [id number] /
[2019-05-07] MEDS ORDERED: ATORVASTATIN 20 MG TAB PO SCH ×2 (21:00)
== END 2019-05-07 15:30 | disposition home or self-care (01) | DRG 282 ==
LOC: 1SOBS 02:48 → OBSVTOIN 15:46 → 3SCARD 18:43
PROVIDERS: ADMIT Internal Medicine; ATTEND Internal Medicine
PROC: B2111ZZ Fluoroscopy of Multiple Coronary Arteries using Low Osmolar Contrast (ICD-10-PCS; 2019-05-06)
PROC: B2151ZZ Fluoroscopy of Left Heart using Low Osmolar Contrast (ICD-10-PCS; 2019-05-06)
PROC: 4A023N7 Measurement of Cardiac Sampling and Pressure, Left Heart, Percutaneous Approach (ICD-10-PCS; principal; 2019-05-06 12:52)
PROC: 0DB98ZX Excision of Duodenum, Via Natural or Artificial Opening Endoscopic, Diagnostic (ICD-10-PCS; 2019-05-07)
PROC: 0DB78ZX Excision of Stomach, Pylorus, Via Natural or Artificial Opening Endoscopic, Diagnostic (ICD-10-PCS; 2019-05-07)
DX: I21.4 Non-ST elevation (NSTEMI) myocardial infarction (principal); K29.70 Gastritis, unspecified, without bleeding; I34.1 Nonrheumatic mitral (valve) prolapse; R13.10 Dysphagia, unspecified; I25.10 Atherosclerotic heart disease of native coronary artery without angina pectoris; I25.84 Coronary atherosclerosis due to calcified coronary lesion; E87.6 Hypokalemia; E78.5 Hyperlipidemia, unspecified; K44.9 Diaphragmatic hernia without obstruction or gangrene; K59.00 Constipation, unspecified; M19.90 Unspecified osteoarthritis, unspecified site; Z79.82 Long term (current) use of aspirin; Z79.899 Other long term (current) drug therapy; Z95.828 Presence of other vascular implants and grafts; Z90.710 Acquired absence of both cervix and uterus; Z90.49 Acquired absence of other specified parts of digestive tract; Z87.891 Personal history of nicotine dependence; K21.9 Gastro-esophageal reflux disease without esophagitis; Z82.49 Family history of ischemic heart disease and other diseases of the circulatory system; Z83.3 Family history of diabetes mellitus; Z83.79 Family history of other diseases of the digestive system; Z84.0 Family history of diseases of the skin and subcutaneous tissue; Z88.5 Allergy status to narcotic agent; Z88.0 Allergy status to penicillin; Z88.2 Allergy status to sulfonamides; Z88.8 Allergy status to other drugs, medicaments and biological substances
CPT/HCPCS: 43239; 80048; 80053; 80061; 84484; 85025; 88305; 93306; 93458

== ENCOUNTER → 2019-06-28 | Outpatient (CLI) | payer MEDICARE ==
--- NOTE | 2019-06-28 15:40 | MR ---
EXAMINATION TYPE: MR chest wo con DATE OF EXAM: 06/28/2019 COMPARISON: None HISTORY: Chondrocostal junction syndrome (Tietze) TECHNIQUE: Standard multiplanar, multisequence MRI of the chest was performed per departmental protoc ol without intravenous contrast. FINDINGS: The exam is limited by patient motion. There is very minimal increased signal of the costoc hondral junctions of the first rib on the right, third ribs bilaterally, fourth rib on the right, and costochondral junctions of the ninth and 10th rib on the right and 10th rib on the left. There is mild aneurysmal dilatation of the aortic root measuring 4.2 cm.Ascending thoracic aorta is w ithin normal limits of size measuring 3.7 cm. Descending thoracic aorta is also within normal limits of size measuring 2.4 cm. 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 Degenerative changes of the shoulders are only partially visualized given the [id number] and would be better characterized with MRI of the shoulders. There is incidental note of intrahepatic biliary duct dilatation within the left hepatic lobe with th e common hepatic duct measuring 7 mm, within normal limits for the patient's age. No suspicious bone marrow replacing process. No axillary adenopathy is seen. The lungs are suboptimal ly evaluated on MRI and suboptimally evaluated given patient motion. IMPRESSION: 1. Subtle abnormal increased T2 signal in the costochondral junctions of the first rib on the right, third ribs bilaterally, fourth rib on the right, ninth ribs on the right, and tenth ribs bilaterally suggesting costochondritis at these locations. 2. No suspicious bone marrow replacing process seen. 3. Incidentally noted noted mild aneurysmal dilatation of the aortic root measuring 4.2 cm. 4. Intrahepatic biliary ductal dilatation within the left hepatic lobe. CT abdomen w con could furthe r evaluate this finding.
== END | disposition home or self-care (01) ==
LOC: RADMRIMAIN 11:56
PROVIDERS: ATTEND Nurse Practitioner Family
DX: R93.7 Abnormal findings on diagnostic imaging of other parts of musculoskeletal system (principal); M94.0 Chondrocostal junction syndrome [Tietze]
CPT/HCPCS: 71550

== ENCOUNTER → 2019-08-23 | Outpatient (CLI) | payer MEDICARE ==
[2019-08-23 16:35] LABS: Basophils # (A) 0.1 k/uL (0-0.2); Basophils % (A) 1 %; Eosinophils # (A) 0.2 k/uL (0-0.7); Eosinophils % (A) 2 %; HGB 11.7 gm/dL (11.4-16.0); Lymphocytes # (A) 3.8 k/uL (1.0-4.8); Lymphocytes % (A) 48 %; MCH 30.7 pg (25.0-35.0); MCHC 30.7 g/dL (31.0-37.0); Mean Platelet Volume 7.2; Monocytes # (A) 0.3 k/uL (0-1.0); Monocytes % (A) 4 %; Neutrophils # (A) 3.4 k/uL (1.3-7.7); Neutrophils % (A) 43 %; Platelet Count 315 k/uL (150-450); RDW 12.9 % (11.5-15.5); WBC 7.9 k/uL (3.8-10.6)
[2019-08-23 18:34] LABS: Erythrocyte Sedimentation Rate 8 mm/hr (0-20)
== END | disposition home or self-care (01) ==
LOC: LABWHC1 14:03
PROVIDERS: ATTEND Physical Medicine & Rehabilitation
DX: M50.321 Other cervical disc degeneration at C4-C5 level (principal); M47.812 Spondylosis without myelopathy or radiculopathy, cervical region; M43.12 Spondylolisthesis, cervical region; M54.81 Occipital neuralgia
CPT/HCPCS: 36415; 85025; 85652; 86140

== ENCOUNTER → 2020-01-03 | Outpatient (CLI) | payer MEDICARE ==
--- NOTE | 2020-01-03 15:16 | MR ---
EXAMINATION TYPE: MR knee LT wo con DATE OF EXAM: 01/03/2020 COMPARISON: None HISTORY: 79-year-old female with bilateral knee pain TECHNIQUE: Multiplanar, multisequence imaging of the left knee is performed without IV contrast. FINDINGS: ACL, PCL, MCL, and LCL complex are intact. There is an oblique tear involving the posterior horn and body of the medial meniscus. Lateral meniscus is intact. Mild diffuse thinning of medial and lateral compartment articular cartilage volumes. There is a focal deep cartilage fissure along the inferior aspect of the mid patella and medial vallejo lar facet with reactive underlying subchondral marrow signal change. Mild diffuse thinning of the pat ellar articular cartilage. Extensor mechanism is intact. Mild joint effusion and tiny Oleary's cyst. Normal popliteal artery anatomy in muscle bulk. No suspicious bone marrow replacement. IMPRESSION: 1. Oblique tear involving the posterior horn and body of the medial meniscus. 2. Focal full-thickness cartilage fissure involving the inferior aspect of the mid patella and medial patellar facet. Some reactive underlying subchondral marrow signal change. 3. Otherwise, there is mild diffuse thinning of tricompartmental articular cartilage volumes. 4. Small knee joint effusion and tiny Oleary's cyst.
--- NOTE | 2020-01-03 15:26 | MR ---
EXAMINATION TYPE: MR knee RT wo con DATE OF EXAM: 01/03/2020 COMPARISON: None HISTORY: 79-year-old female with bilateral knee pain TECHNIQUE: Multiplanar, multisequence imaging of the right knee is performed without IV contrast. FINDINGS: The ACL, PCL, MCL complex are intact. Heterogeneous signal within the femoral attachment fibers of th e LCL proper suggesting old sprain. Otherwise, LCL complex appears intact There is an oblique tear involving the body of the lateral meniscus. Mild diffuse thinning of medial and lateral compartment articular cartilage volumes but with more sev ere cartilage loss along the anterior weightbearing aspect of the medial tibial plateau and associate d underlying subchondral cystic change. High-grade cartilage loss along the medial patellar facet and moderate fissuring of articular cartila ge throughout the lateral patellar facet. Extensor mechanism is intact. Mild edema within the suprapatellar fat pad and within Hoffa's fat loca viridiana inferior and lateral to the patella. Small knee joint effusion and trace Oleary's cyst. Incidental 1.4 cm ganglion at the origin of the med ial head gastrocnemius. Mild generalized muscular atrophy. No suspicious bone marrow placement. Normal popliteal artery anato my. IMPRESSION: 1. Oblique tear involving the body of the lateral meniscus. 2. Moderate overall patellofemoral compartment osteoarthrosis with high-grade cartilage loss along th e medial patellar facet and moderate articular cartilage fissuring throughout the lateral patellar fa cet. 3. Mild overall medial compartmental osteoarthrosis with more focal cartilage loss anteriorly along t he anterior weightbearing aspect of the tibial plateau. 4. Some edema within the suprapatellar fat pad and Hoffa's fat inferior and lateral to the patella. F indings may be seen in the setting of fat pad impingement syndrome. Clinically correlate. 5. Small knee joint effusion and trace Oleary's cyst.
== END | disposition home or self-care (01) ==
LOC: RADMRIMAIN 11:40
PROVIDERS: ATTEND Nurse Practitioner Family
DX: S83.242A Other tear of medial meniscus, current injury, left knee, initial encounter (principal); M94.8X8 Other specified disorders of cartilage, other site; M71.22 Synovial cyst of popliteal space [Baker], left knee; S83.281A Other tear of lateral meniscus, current injury, right knee, initial encounter; M17.11 Unilateral primary osteoarthritis, right knee

== ENCOUNTER → 2020-06-20 | Outpatient (CLI) | payer MEDICARE ==
[2020-06-20 11:58] LABS: African American GFR (CKD) >90 (>60 ml/min/1.73 sqM); Blood Urea Nitrogen 13 mg/dL (7-17); Non-African American GFR(CKD) 78 (>60 ml/min/1.73 sqM)
--- NOTE | 2020-06-20 12:52 | CT ---
EXAMINATION TYPE: CT angio chest DATE OF EXAM: 06/20/2020 COMPARISON: MRI chest June 28, 2019 HISTORY: Thoracic aortic ectasia. CT DLP: 175.1 mGycm. Automated Exposure Control for Dose Reduction was Utilized. CONTRAST: CTA scan of the thorax is performed with IV Contrast, patient injected with 100 mL of Isovue 370, pul monary embolism protocol. 3-D reconstructive Images are created on an independent workstation and rev iewed. FINDINGS: LUNGS: Mild to moderate biapical pleural/parenchymal scarring. Patchy left basilar linear atelectasis and/or scarring. No suspicious focal consolidation or groundglass opacity. There is no pleural effus ion or pneumothorax seen bilaterally. No concerning pulmonary nodules or masses. The tracheobronchia l tree is patent. MEDIASTINUM: There is satisfactory enhancement of the pulmonary artery and its branches, there is no CT evidence for pulmonary embolism. There is stable ectasia or minor aneurysmal change to the ascendi ng aorta up to 3.9 cm, not significant changed or progressed from MRI chest study. No aneurysmal exte nsion into the arch or descending aorta. Moderate mixed plaque in the descending aorta is present. No te is made of significant narrowing up to roughly 75% of the SMA with poststenotic dilatation axial i mage 66 . Findings confirmed on sagittal images. There are no greater than 1 cm hilar or mediastinal lymph nodes. No cardiomegaly or pericardial effusion is seen. Coronary artery calcification is pres ent which is noted marker for underlying coronary artery disease. OTHER: Cholecystectomy clips are present. IMPRESSION: Stable ectasia/borderline aneurysmal change in the ascending aorta up to 3.9 cm. 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 Correlate clinically.
== END | disposition home or self-care (01) ==
LOC: RADCTMAIN 11:08
PROVIDERS: ATTEND Internal Medicine Interventional Cardiology
DX: I70.0 Atherosclerosis of aorta (principal); Z88.0 Allergy status to penicillin; Z88.1 Allergy status to other antibiotic agents; Z88.2 Allergy status to sulfonamides
CPT/HCPCS: 82565; 84520; 71275; 36415; Q9967

== ENCOUNTER → 2021-03-27 | Outpatient (CLI) | payer MEDICARE ==
--- NOTE | 2021-03-27 12:45 | MR ---
EXAMINATION TYPE: MR lumbar spine wo con DATE OF EXAM: 03/27/2021 12:17 PM COMPARISON: NONE HISTORY: RT groin pain and pelvic pain Multiplanar, MultiSpin echo imaging of the lumbar spine was performed. L1-L2: Severe decreased signal and loss of height compatible with degenerative disc disease. Posteri or disc bulge with effacement ventral thecal sac. No evidence for central stenosis. Facet joint arthr opathy resulting in bilateral foraminal encroachment. L2-L3: Severe decreased signal and loss of height compatible with degenerative disc disease. Posteri or disc bulge with effacement ventral thecal sac. No evidence for central stenosis. Facet joint arthr opathy resulting in bilateral foraminal encroachment. L3-L4: Severe decreased signal and loss of height compatible with degenerative disc disease. Moderat e Posterior disc bulge with effacement ventral thecal sac. Borderline central stenosis with bilateral lateral recess stenosis. Facet joint arthropathy resulting in bilateral foraminal encroachment. L4-L5: Severe decreased signal and loss of height compatible with degenerative disc disease. Posteri or disc bulge with effacement ventral thecal sac. No evidence for central stenosis. Facet joint arthr opathy resulting in bilateral foraminal encroachment. L5-S1: Severe decreased signal and loss of height compatible with degenerative disc disease. Posteri or disc bulge with effacement ventral thecal sac. No evidence for central stenosis. Facet joint arthr opathy resulting in bilateral foraminal encroachment. Lumbar segments are intact. No paraspinal masses are identified. Conus medullaris has a normal appe arance. IMPRESSION: 1. Multilevel degenerative disc disease and spondylosis with disc bulging. Borderline to mild central stenosis at L3-4.
== END | disposition home or self-care (01) ==
LOC: RADMRIMAIN 11:18
PROVIDERS: ATTEND Physical Medicine & Rehabilitation
DX: M48.061 Spinal stenosis, lumbar region without neurogenic claudication (principal); M51.26 Other intervertebral disc displacement, lumbar region; M51.36 Other intervertebral disc degeneration, lumbar region; M47.816 Spondylosis without myelopathy or radiculopathy, lumbar region
CPT/HCPCS: 72148